=== PATIENT | female | born 1930 | race Caucasian/White ===

== ENCOUNTER 2018-01-20 10:57 | Inpatient (IN) | payer MEDICARE, OTHER ==
[2018-01-16 15:39] LABS: BASOPHILS % (AUTO) 0.5 % (0-1); EOSINOPHILS # (AUTO) 0.1 X10'3 (0-0.9); EOSINOPHILS % (AUTO) 3.1 % (0-6); LYMPHOCYTES # (AUTO) 0.4 X10'3 (1.1-4.8); LYMPHOCYTES % (AUTO) 11.5 % (21-51); MEAN CORPUSCULAR HEMOGLOBIN 30.6 PG (27.0-31.0); MEAN CORPUSCULAR HGB CONC 33.9 % (33.0-36.5); MEAN CORPUSCULAR VOLUME 90.3 FL (78-98); MEAN PLATELET VOLUME 10.5 FL (7.4-10.4); MONOCYTES # (AUTO) 0.3 X10'3 (0-0.9); MONOCYTES % (AUTO) 7.8 % (2-12); NEUTROPHILS # (AUTO) 2.7 X10'3 (1.8-7.7); NEUTROPHILS % (AUTO) 77.1 % (42-75); PRE OP HEMATOCRIT 31.9 % (35.0-45.0); PRE OP PLATELET COUNT 108 X10'3 (140-440); RED BLOOD COUNT 3.53 X10'6 (4.20-5.60); RED CELL DISTRIBUTION WIDTH 15.5 % (11.5-14.5)
[2018-01-16 15:46] LABS: PRE OP HEMOGLOBIN 10.8 g/dL (12.0-16.0)
[2018-01-16 15:47] LABS: PRE OP INR 1.1 INR; PRE OP PROTIME 11.4 SECONDS (9.0-12.0)
[2018-01-16 15:51] LABS: CLARITY,URINE CLEAR (Clear); COLOR,URINE YELLOW (Yellow); GLUCOSE, URINE NEGATIVE (Neg); KETONES,URINE NEGATIVE (Neg); LEUKOCYTE ESTERASE ,URINE SMALL (Neg); NITRITES, URINE NEGATIVE (Neg); OCCULT BLOOD,URINE TRACE-INTACT (Neg); PH,URINE 5.5 (4.8-8.0); PROTEIN,URINE NEGATIVE (Neg); UROBILINOGEN,URINE 0.2 E.U/dL (0.2-1.0)
[2018-01-16 15:52] LABS: ALBUMIN 3.5 G/DL (3.4-5.0); ALBUMIN/GLOBULIN RATIO 0.9 (1.1-1.5); ALKALINE PHOSPHATASE 132 IU/L (46-116); BLOOD UREA NITROGEN 60 MG/DL (7-18); BUN/CREATININE RATIO 23.1 (6.6-38.0); CHLORIDE 101 MMOL/L (99-107); PRE OP ALT 33 U/L (30-65); PRE OP ANION GAP 10 (8-16); PRE OP AST 36 U/L (10-37); PRE OP BILIRUB, TOTAL 0.5 MG/DL (0.0-1.0); PRE OP GLUCOSE 127 MG/DL (70-104); PRE OP POTASSIUM 3.7 MMOL/L (3.4-5.1); PRE OP SODIUM 142 MMOL/L (135-145); TOTAL CARBON DIOXIDE 30.9 MMOL/L (24-32); TOTAL PROTEIN 7.4 G/DL (6.4-8.2); eGFR 17 ML/MIN
[2018-01-16 15:56] LABS: UA COLLECTION TYPE CLN CATCH MIDSTREAM
[2018-01-16 15:57] LABS: BACTERIA,URINE FEW /HPF (Neg); MUCUS STRANDS NONE SEEN /LPF (Neg); RBC,URINE 0-2 /HPF (0-2); SQUAMOUS EPITHELIAL CELL,UR FEW /LPF (FEW); WBC,URINE 0-4 /HPF (0-4)
[2018-01-16 15:57] LABS: HEMOGLOBIN A1C 6.2 % (4.5-6.2)
[2018-01-20] VITALS (22 sets, daily range): BP systolic 119–148; BP diastolic 59–84
[~2018-01-20] VITALS: Ht 152.4 cm; Wt 74.8 kg
[~2018-01-20 10:57] MED LIST: ASPI81TA52 PO; CARV6.2553 PO; CHLO25TA10 PO; CYAN-19 PO; DILT360T13 PO; DOCUMENT DATE & TIME OF BETA-BLOCKER PO ONE; FENO160T8 PO; FERR324T PO; FURO20TA4 PO; LIRA0.6P SQ; LOSA100T15 PO; MESSAGE TO PHARMACY PO ONE; MULT-38 PO; POTA8TAB8 PO; SITA1TAB2 PO; acetaminophen 325mg tablet PO ONE; cefazolin/dext.iso 2gm/100 ML IV ONE; celeCOXIB 100mg capsule PO ONE; famotidine 20mg tablet PO ONE; gabapentin 300mg capsule PO ONE; metoclopramide 5 mg/ml inj IV ONE; oxyCODONE SR 10mg (sust. release) tab PO ONE; ringers solution, lacted 1,000 ML IV SCH; tranexamic acid inj. 1,000 MG in normal saline 100ml IV soln 90 ML IV ONE; vancomycin inj 1,500 MG in normal saline 300ml IV soln IV ONE
[2018-01-20] MEDS ORDERED: cloNIDine hcl/PF 100mcg/ml inj ONE (12:25)
[2018-01-20] MEDS ORDERED: vancomycin 1,000mg inj ONE (12:25)
[2018-01-20] MEDS ORDERED: ROPIVAcaine inj 250 MG, CloNIDine/PF inj 80 MCG, epiNEPHrine inj 0.5 MG in normal salin... IU ONE (13:08)
[2018-01-20] MEDS ORDERED: diphenhydrAMINE 50 mg/ml inj ONE (13:27)
[2018-01-20] MEDS ORDERED: glycopyrrolate 0.2mg/ml inj ONE (13:27)
[2018-01-20] MEDS ORDERED: BUPIVAcaine/dex-water/PF 7.5 mg/ml 2ml ampul ONE (13:31)
[2018-01-20] MEDS ORDERED: morphine /PF 1mg/ml 10ml inj. ONE (13:32)
[2018-01-20] MEDS ORDERED: midazolam 2 mg/2 ml injection ONE (13:33)
[2018-01-20] MEDS ORDERED: fentaNYL/PF 50MCG/1 ML 2ML syringe ONE (13:42)
[2018-01-20] MEDS ORDERED: propofol inj 20 ML IV ONE (14:46)
[2018-01-20] MEDS ORDERED: ePHEDrine 50MG/ML INJ. ONE (14:46)
[2018-01-20] MEDS ORDERED: phenylephrine 10mg/ml inj. ONE (14:46)
[2018-01-20] MEDS ORDERED: ringers solution, lacted 1,000 ML IV SCH (14:50)
[2018-01-20] MEDS ORDERED: morphine 4 MG/ML inj SYRINge IV PRN (14:50)
[2018-01-20] MEDS ORDERED: diphenhydrAMINE 50 mg/ml inj IV PRN (14:50)
[2018-01-20] MEDS ORDERED: ondansetron/PF 4mg/2ml inj IV PRN ×3 (14:50→17:22)
[2018-01-20] MEDS ORDERED: HYDROcodone/acetaminophen 10/325mg tab PO PRN ×2 (17:21)
[2018-01-20] MEDS ORDERED: diphenhydrAMINE 25mg capsule PO PRN ×2 (17:22→21:00)
[2018-01-20] MEDS ORDERED: magnesium hydroxide 30ml (MOM) UD suspension PO PRN (17:22)
[2018-01-20] MEDS ORDERED: HYDROmorphone 1 mg/ml syringe IV PRN ×2 (17:24)
[2018-01-20] MEDS ORDERED: acetaminophen 325mg tablet PO PRN (17:25)
[2018-01-20] MEDS ORDERED: dextrose ORAL solution 15 GM/59 ML bottle PO PRN ×2 (17:26)
[2018-01-20] MEDS ORDERED: glucagon, human recombinant 1mg kit SUBCUT PRN (17:27)
[2018-01-20] MEDS ORDERED: dextrose 50%-water 50ml dispensing syringe IV PRN ×2 (17:27)
[2018-01-20] MEDS: ceFAZolin 1GM/D5W- ADD-VANTAGE 50 ML IV SCH (18:02)
[2018-01-20] MEDS ORDERED: vancomycin/NS 1 GM ADD-VANTAGE 250 ML IV SCH (20:00)
[2018-01-20] MEDS: gabapentin 300mg capsule PO SCH (20:39)
[2018-01-20] MEDS: sennosides 8.6mg tablet PO SCH (20:39)
[2018-01-20] MEDS: potassium cl 20mEq in 1/2 NS 1,000 ML IV SCH (20:39)
[2018-01-20] MEDS: ascorbic acid 500mg tablet PO SCH (20:40)
[2018-01-20] MEDS: carvedilol 6.25mg tablet PO SCH (20:40)
[2018-01-20] MEDS: insulin glargine (Lantus) pen - multi-dose SQ SCH (20:47)
[2018-01-21] MEDS: ceFAZolin 1GM/D5W- ADD-VANTAGE 50 ML IV SCH (00:20)
[2018-01-21 02:00] VITALS: BP 123/65
[2018-01-21] MEDS: potassium cl 20mEq in 1/2 NS 1,000 ML IV SCH ×3 (05:31→19:15)
[2018-01-21 05:53] LABS: BASOPHILS % (AUTO) 0.4 % (0-1); EOSINOPHILS # (AUTO) 0.1 X10'3 (0-0.9); EOSINOPHILS % (AUTO) 3.3 % (0-6); HEMATOCRIT 23.7 % (35.0-45.0); HEMOGLOBIN 8.2 g/dl (12.0-16.0); LYMPHOCYTES # (AUTO) 0.3 X10'3 (1.1-4.8); LYMPHOCYTES % (AUTO) 12.4 % (21-51); MEAN CORPUSCULAR HEMOGLOBIN 31.5 PG (27.0-31.0); MEAN CORPUSCULAR HGB CONC 34.5 % (33.0-36.5); MEAN CORPUSCULAR VOLUME 91.1 FL (78-98); MEAN PLATELET VOLUME 9.6 FL (7.4-10.4); MONOCYTES # (AUTO) 0.2 X10'3 (0-0.9); MONOCYTES % (AUTO) 9.3 % (2-12); NEUTROPHILS % (AUTO) 74.6 % (42-75); PLATELET COUNT 77 X10'3 (140-440); RED CELL DISTRIBUTION WIDTH 15.5 % (11.5-14.5); WHITE BLOOD COUNT 2.6 X10'3 (4.5-11.0)
[2018-01-21 06:00] VITALS: BP 128/52
[2018-01-21 06:14] LABS: ANION GAP 7 (8-16); CHLORIDE 107 MMOL/L (99-107); POTASSIUM 3.5 MMOL/L (3.5-5.1); SODIUM 143 MMOL/L (135-145); TOTAL CARBON DIOXIDE 29.5 MMOL/L (24-32)
[2018-01-21 06:33] LABS: PLATELET ESTIMATE DECREASED; TOTAL CELLS COUNTED 100
[2018-01-21] MEDS: diltiazem CD 180mg cap (once-daily) PO SCH (08:00)
[2018-01-21] MEDS ORDERED: bisacodyl 10mg suppository rectal RC PRN (08:00)
[2018-01-21] MEDS: carvedilol 6.25mg tablet PO SCH ×2 (08:00→20:05)
[2018-01-21] MEDS: multivitamins, therapeutics tablet PO SCH (08:51)
[2018-01-21] MEDS: aspirin 325mg tablet PO SCH (08:51)
[2018-01-21] MEDS: gabapentin 300mg capsule PO SCH ×3 (08:51→20:05)
[2018-01-21] MEDS: chlorthalidone 25mg tablet PO SCH (08:51)
[2018-01-21] MEDS: furosemide 20MG tablet PO SCH (08:51)
[2018-01-21] MEDS: losartan 50mg tablet PO SCH (08:53)
[2018-01-21] MEDS: potassium chloride 8mEq ER tablet PO SCH (08:55)
[2018-01-21] MEDS: ascorbic acid 500mg tablet PO SCH ×2 (08:57→20:05)
[2018-01-21 10:00] VITALS: BP 125/50
[2018-01-21 14:00] VITALS: BP 140/52
[2018-01-21 18:00] VITALS: BP 146/60
[2018-01-21] MEDS: sennosides 8.6mg tablet PO SCH (20:06)
[2018-01-21] MEDS: insulin glargine (Lantus) pen - multi-dose SQ SCH (21:07)
[2018-01-21 22:00] VITALS: BP 121/52
[2018-01-22] VITALS (7 sets, daily range): BP systolic 112–132; BP diastolic 48–63
[2018-01-22] MEDS: potassium cl 20mEq in 1/2 NS 1,000 ML IV SCH (01:19)
[2018-01-22 07:05] LABS: BASOPHILS % (AUTO) 0.3 % (0-1); EOSINOPHILS # (AUTO) 0.1 X10'3 (0-0.9); EOSINOPHILS % (AUTO) 2.7 % (0-6); HEMATOCRIT 24.6 % (35.0-45.0); HEMOGLOBIN 8.5 g/dl (12.0-16.0); LYMPHOCYTES # (AUTO) 0.4 X10'3 (1.1-4.8); LYMPHOCYTES % (AUTO) 12.4 % (21-51); MEAN CORPUSCULAR HEMOGLOBIN 31.3 PG (27.0-31.0); MEAN CORPUSCULAR HGB CONC 34.3 % (33.0-36.5); MEAN CORPUSCULAR VOLUME 91.2 FL (78-98); MEAN PLATELET VOLUME 10.7 FL (7.4-10.4); MONOCYTES # (AUTO) 0.2 X10'3 (0-0.9); MONOCYTES % (AUTO) 8.1 % (2-12); NEUTROPHILS # (AUTO) 2.3 X10'3 (1.8-7.7); NEUTROPHILS % (AUTO) 76.5 % (42-75); PLATELET COUNT 82 X10'3 (140-440); RED CELL DISTRIBUTION WIDTH 15.8 % (11.5-14.5)
[2018-01-22] MEDS: NUT.TX.GLUC.INTOLER,LAC-FR,SOY (GLUCERNA) 237 ML PO SCH ×4 (08:00→18:40)
[2018-01-22] MEDS: diltiazem CD 180mg cap (once-daily) PO SCH (09:02)
[2018-01-22] MEDS: chlorthalidone 25mg tablet PO SCH (09:02)
[2018-01-22] MEDS: furosemide 20MG tablet PO SCH (09:02)
[2018-01-22] MEDS: potassium chloride 8mEq ER tablet PO SCH (09:02)
[2018-01-22] MEDS: ascorbic acid 500mg tablet PO SCH ×2 (09:03→19:44)
[2018-01-22] MEDS: multivitamins, therapeutics tablet PO SCH (09:03)
[2018-01-22] MEDS: aspirin 325mg tablet PO SCH (09:03)
[2018-01-22] MEDS: gabapentin 300mg capsule PO SCH ×3 (09:03→19:44)
[2018-01-22] MEDS: carvedilol 6.25mg tablet PO SCH ×2 (09:03→19:44)
[2018-01-22] MEDS: losartan 50mg tablet PO SCH (09:03)
[2018-01-22] MEDS: insulin Lispro (HumaLOG) vial - multi-dose SQ SCH ×3 (09:12→18:37)
[2018-01-22 11:39] LABS: LARGE PLATELETS FEW; PLATELET ESTIMATE DECREASED
[2018-01-22] MEDS: sennosides 8.6mg tablet PO SCH (19:44)
[2018-01-22] MEDS: insulin glargine (Lantus) pen - multi-dose SQ SCH (21:01)
[2018-01-23] VITALS (14 sets, daily range): BP systolic 94–144; BP diastolic 39–55
[2018-01-23 05:52] LABS: HEMOGLOBIN 7.2 g/dl (12.0-16.0); MEAN CORPUSCULAR HEMOGLOBIN 31.8 PG (27.0-31.0); MEAN CORPUSCULAR VOLUME 90.6 FL (78-98); MEAN PLATELET VOLUME 9.9 FL (7.4-10.4); PLATELET COUNT 76 X10'3 (140-440); RED BLOOD COUNT 2.26 X10'6 (4.20-5.60); RED CELL DISTRIBUTION WIDTH 15.6 % (11.5-14.5); WHITE BLOOD COUNT 2.9 X10'3 (4.5-11.0)
[2018-01-23 06:26] LABS: HEMATOCRIT 20.5 % (35.0-45.0)
[2018-01-23 07:48] LABS: ANISOCYTOSIS 1+; PLATELET ESTIMATE DECREASED; TOTAL CELLS COUNTED 100
[2018-01-23] MEDS: diltiazem CD 180mg cap (once-daily) PO SCH (08:36)
[2018-01-23] MEDS: carvedilol 6.25mg tablet PO SCH ×2 (08:36→19:30)
[2018-01-23] MEDS: chlorthalidone 25mg tablet PO SCH (08:36)
[2018-01-23] MEDS: multivitamins, therapeutics tablet PO SCH (08:37)
[2018-01-23] MEDS: losartan 50mg tablet PO SCH (08:37)
[2018-01-23] MEDS: ascorbic acid 500mg tablet PO SCH ×2 (08:37→19:30)
[2018-01-23] MEDS: gabapentin 300mg capsule PO SCH ×3 (08:37→19:30)
[2018-01-23] MEDS: furosemide 20MG tablet PO SCH (08:37)
[2018-01-23] MEDS: aspirin 325mg tablet PO SCH (08:37)
[2018-01-23] MEDS: potassium chloride 8mEq ER tablet PO SCH (08:37)
[2018-01-23] MEDS: NUT.TX.GLUC.INTOLER,LAC-FR,SOY (GLUCERNA) 237 ML PO SCH ×3 (08:48→18:17)
[2018-01-23] MEDS: insulin Lispro (HumaLOG) vial - multi-dose SQ SCH ×2 (10:08→18:35)
[2018-01-23] MEDS: sennosides 8.6mg tablet PO SCH (19:30)
[2018-01-23] MEDS: insulin glargine (Lantus) pen - multi-dose SQ SCH (20:50)
[2018-01-24 05:00] VITALS: BP 125/58
[2018-01-24 07:30] LABS: HEMATOCRIT 28.7 % (35.0-45.0); HEMOGLOBIN 10.1 g/dl (12.0-16.0); MEAN CORPUSCULAR HEMOGLOBIN 31.6 PG (27.0-31.0); MEAN CORPUSCULAR HGB CONC 35.1 % (33.0-36.5); PLATELET COUNT 89 X10'3 (140-440); RED BLOOD COUNT 3.19 X10'6 (4.20-5.60); RED CELL DISTRIBUTION WIDTH 15.4 % (11.5-14.5); WHITE BLOOD COUNT 2.9 X10'3 (4.5-11.0)
[2018-01-24 07:59] LABS: ANISOCYTOSIS 1+; PLATELET ESTIMATE DECREASED; POLYCHROMASIA 1+; TOTAL CELLS COUNTED 100
[2018-01-24] MEDS: carvedilol 6.25mg tablet PO SCH (08:00)
[2018-01-24] MEDS: diltiazem CD 180mg cap (once-daily) PO SCH (08:00)
[2018-01-24] MEDS: chlorthalidone 25mg tablet PO SCH (08:15)
[2018-01-24] MEDS: furosemide 20MG tablet PO SCH (08:16)
[2018-01-24] MEDS: potassium chloride 8mEq ER tablet PO SCH (08:16)
[2018-01-24] MEDS: gabapentin 300mg capsule PO SCH (08:16)
[2018-01-24] MEDS: losartan 50mg tablet PO SCH (08:16)
[2018-01-24] MEDS: ascorbic acid 500mg tablet PO SCH (08:18)
[2018-01-24] MEDS: aspirin 325mg tablet PO SCH (08:18)
[2018-01-24] MEDS: multivitamins, therapeutics tablet PO SCH (08:18)
[2018-01-24] MEDS: NUT.TX.GLUC.INTOLER,LAC-FR,SOY (GLUCERNA) 237 ML PO SCH (08:22)
[2018-01-24 10:00] VITALS: BP 122/51
== END 2018-01-24 11:30 | disposition home or self-care (01) | DRG 470 ==
LOC: PAS IN 10:57 → EDSTATUS 14:00 → ORTHO 4S 16:59
PROVIDERS: ADMIT Orthopaedic Surgery; ATTEND Orthopaedic Surgery
PROC: 0SR9069 Replacement of Right Hip Joint with Oxidized Zirconium on Polyethylene Synthetic Substitute, Cemented, Open Approach (ICD-10-PCS; principal; 2018-01-20 13:27)
PROC: 30233N1 Transfusion of Nonautologous Red Blood Cells into Peripheral Vein, Percutaneous Approach (ICD-10-PCS; 2018-01-23)
DX: M16.11 Unilateral primary osteoarthritis, right hip (principal); D62 Acute posthemorrhagic anemia; E11.22 Type 2 diabetes mellitus with diabetic chronic kidney disease; Z96.642 Presence of left artificial hip joint; I12.9 Hypertensive chronic kidney disease with stage 1 through stage 4 chronic kidney disease, or unspecified chronic kidney disease; I89.0 Lymphedema, not elsewhere classified; N18.9 Chronic kidney disease, unspecified; Z90.49 Acquired absence of other specified parts of digestive tract; Z90.710 Acquired absence of both cervix and uterus; Z79.899 Other long term (current) drug therapy; Z79.82 Long term (current) use of aspirin; Z87.891 Personal history of nicotine dependence
CPT/HCPCS: 36415; 71046; 72170; 80051; 80053; 81001; 82948; 83036; 85025; 85610; 85730; 86885; 86900; 86901; 86922; 87070; 87088; 97110; 97116; 97161; 97530; A4615; A7000; C1713; C1758; C1776; J0171; J0690; J0735; J1200; J1815; J2250; J2274; J2370; J2704; J2765; J2795; J3010; J3370; J3490; J7030; J7120; P9016

== ENCOUNTER 2018-02-05 15:27 | Inpatient (IN) | payer MEDICARE, OTHER ==
[~2018-02-05] VITALS: Ht 152.4 cm; Wt 74.0 kg
[~2018-02-05 15:27] MED LIST changes: -DOCUMENT DATE & TIME OF BETA-BLOCKER PO ONE; -MESSAGE TO PHARMACY PO ONE; -acetaminophen 325mg tablet PO ONE; -cefazolin/dext.iso 2gm/100 ML IV ONE; -celeCOXIB 100mg capsule PO ONE; -famotidine 20mg tablet PO ONE; -gabapentin 300mg capsule PO ONE; -metoclopramide 5 mg/ml inj IV ONE; -oxyCODONE SR 10mg (sust. release) tab PO ONE; -ringers solution, lacted 1,000 ML IV SCH; -tranexamic acid inj. 1,000 MG in normal saline 100ml IV soln 90 ML IV ONE; -vancomycin inj 1,500 MG in normal saline 300ml IV soln IV ONE
[2018-02-05 16:00] VITALS: BP 120/43
[2018-02-05] MEDS ORDERED: diphenhydrAMINE 25mg capsule PO PRN ×2 (16:40)
[2018-02-05] MEDS ORDERED: acetaminophen 325mg tablet PO PRN (16:40)
[2018-02-05] MEDS ORDERED: magnesium hydroxide 30ml (MOM) UD suspension PO PRN (16:40)
[2018-02-05] MEDS ORDERED: ondansetron/PF 4mg/2ml inj IV PRN (16:40)
[2018-02-05] MEDS ORDERED: HYDROmorphone 1 mg/ml syringe IV PRN ×2 (16:40)
[2018-02-05] MEDS ORDERED: bisacodyl 10mg suppository rectal RC PRN (16:40)
[2018-02-05] MEDS ORDERED: MESSAGE TO PHARMACY PO ONE (17:15)
[2018-02-05] MEDS ORDERED: insulin Lispro (HumaLOG) vial - multi-dose SQ SCH (17:15)
[2018-02-05] MEDS ORDERED: glucagon, human recombinant 1mg kit SUBCUT PRN (17:15)
[2018-02-05] MEDS ORDERED: dextrose 50%-water 50ml dispensing syringe IV PRN ×2 (17:15)
[2018-02-05] MEDS ORDERED: dextrose ORAL solution 15 GM/59 ML bottle PO PRN ×2 (17:15)
[2018-02-05 17:39] LABS: BASOPHILS % (AUTO) 0.4 % (0-1); EOSINOPHILS # (AUTO) 0.1 X10'3 (0-0.9); EOSINOPHILS % (AUTO) 3.6 % (0-6); LYMPHOCYTES # (AUTO) 0.4 X10'3 (1.1-4.8); LYMPHOCYTES % (AUTO) 15.1 % (21-51); MEAN CORPUSCULAR HEMOGLOBIN 30.4 PG (27.0-31.0); MEAN PLATELET VOLUME 8.9 FL (7.4-10.4); MONOCYTES # (AUTO) 0.3 X10'3 (0-0.9); MONOCYTES % (AUTO) 9.8 % (2-12); NEUTROPHILS % (AUTO) 71.1 % (42-75); PRE OP HEMATOCRIT 24.6 % (35.0-45.0); PRE OP PLATELET COUNT 162 X10'3 (140-440); RED BLOOD COUNT 2.68 X10'6 (4.20-5.60); RED CELL DISTRIBUTION WIDTH 16.3 % (11.5-14.5)
[2018-02-05 17:42] LABS: PRE OP HEMOGLOBIN 8.1 g/dL (12.0-16.0)
[2018-02-05 17:52] LABS: ALANINE AMINOTRANSFERASE 20 U/L (12-78); ALBUMIN 2.5 G/DL (3.4-5.0); ALBUMIN/GLOBULIN RATIO 0.7 (1.1-1.5); ALKALINE PHOSPHATASE 95 IU/L (46-116); ANION GAP 6 (8-16); ASPARTATE AMINO TRANSFERASE 29 U/L (10-37); BILIRUBIN,TOTAL 0.5 MG/DL (0.1-1.0); BLOOD UREA NITROGEN 44 MG/DL (7-18); BUN/CREATININE RATIO 22.9 (6.6-38.0); C-REACTIVE PROTEIN 2.19 MG/DL (0.0-0.5); CHLORIDE 104 MMOL/L (99-107); CREATININE 1.92 MG/DL (0.40-0.90); GLUCOSE 170 MG/DL (70-104); POTASSIUM 3.3 MMOL/L (3.5-5.1); SODIUM 145 MMOL/L (135-145); TOTAL CARBON DIOXIDE 34.6 MMOL/L (24-32); TOTAL PROTEIN 6.3 G/DL (6.4-8.2); eGFR 25 ML/MIN
[2018-02-05 18:00] VITALS: BP 120/43
[2018-02-05 18:44] LABS: ANISOCYTOSIS 1+; PLATELET ESTIMATE NORMAL; TOTAL CELLS COUNTED 100
[2018-02-05 18:45] LABS: POLYCHROMASIA FEW
[2018-02-05] MEDS: gabapentin 300mg capsule PO SCH (20:34)
[2018-02-05] MEDS: sennosides 8.6mg tablet PO SCH (20:34)
[2018-02-05] MEDS: carvedilol 6.25mg tablet PO SCH (20:34)
[2018-02-05] MEDS: ascorbic acid 500mg tablet PO SCH (20:34)
[2018-02-05] MEDS: potassium cl 20mEq in 1/2 NS 1,000 ML IV SCH (20:35)
[2018-02-05] MEDS: insulin glargine (Lantus) pen - multi-dose SQ SCH (21:00)
[2018-02-05 22:00] VITALS: BP 108/52
[2018-02-05] MEDS: HYDROcodone/acetaminophen 10/325mg tab PO PRN (22:57)
[2018-02-06] VITALS (19 sets, daily range): BP systolic 113–139; BP diastolic 39–78
[2018-02-06] MEDS: potassium cl 20mEq in 1/2 NS 1,000 ML IV SCH ×2 (00:38→05:20)
[2018-02-06 05:24] LABS: BASOPHILS % (AUTO) 0.6 % (0-1); EOSINOPHILS # (AUTO) 0.1 X10'3 (0-0.9); EOSINOPHILS % (AUTO) 3.9 % (0-6); HEMATOCRIT 23.2 % (35.0-45.0); HEMOGLOBIN 7.9 g/dl (12.0-16.0); LYMPHOCYTES # (AUTO) 0.5 X10'3 (1.1-4.8); LYMPHOCYTES % (AUTO) 18.8 % (21-51); MEAN CORPUSCULAR HEMOGLOBIN 31.1 PG (27.0-31.0); MEAN CORPUSCULAR HGB CONC 33.8 % (33.0-36.5); MEAN PLATELET VOLUME 9.1 FL (7.4-10.4); MONOCYTES # (AUTO) 0.3 X10'3 (0-0.9); MONOCYTES % (AUTO) 9.5 % (2-12); NEUTROPHILS # (AUTO) 1.9 X10'3 (1.8-7.7); NEUTROPHILS % (AUTO) 67.2 % (42-75); PLATELET COUNT 163 X10'3 (140-440); RED BLOOD COUNT 2.53 X10'6 (4.20-5.60); RED CELL DISTRIBUTION WIDTH 15.8 % (11.5-14.5); WHITE BLOOD COUNT 2.8 X10'3 (4.5-11.0)
[2018-02-06 05:57] LABS: ALBUMIN 2.4 G/DL (3.4-5.0); ANION GAP 9 (8-16); BLOOD UREA NITROGEN 41 MG/DL (7-18); BUN/CREATININE RATIO 23.4 (6.6-38.0); CALCIUM 8.7 MG/DL (8.5-10.1); CHLORIDE 104 MMOL/L (99-107); CREATININE 1.75 MG/DL (0.40-0.90); GLUCOSE 130 MG/DL (70-104); POTASSIUM 3.6 MMOL/L (3.5-5.1); SODIUM 142 MMOL/L (135-145); TOTAL CARBON DIOXIDE 28.7 MMOL/L (24-32); eGFR 27 ML/MIN
[2018-02-06 06:39] LABS: PLATELET ESTIMATE NORMAL; TOTAL CELLS COUNTED 100
[2018-02-06 06:40] LABS: ANISOCYTOSIS 1+; POLYCHROMASIA 1+
[2018-02-06] MEDS ORDERED: potassium Cl 20 mEq SR tablet PO ONE (06:55)
[2018-02-06] MEDS: losartan 50mg tablet PO SCH (08:00)
[2018-02-06] MEDS: chlorthalidone 25mg tablet PO SCH (08:00)
[2018-02-06] MEDS: ascorbic acid 500mg tablet PO SCH ×2 (08:00→20:55)
[2018-02-06] MEDS: multivitamins, therapeutics tablet PO SCH (08:00)
[2018-02-06] MEDS: diltiazem CD 120mg capsule (once-daily) PO SCH (08:18)
[2018-02-06] MEDS: potassium chloride 8mEq ER tablet PO SCH (08:18)
[2018-02-06] MEDS: furosemide 20MG tablet PO SCH (08:18)
[2018-02-06] MEDS: carvedilol 6.25mg tablet PO SCH ×2 (08:18→20:55)
[2018-02-06] MEDS: gabapentin 300mg capsule PO SCH ×3 (08:18→20:55)
[2018-02-06] MEDS: HYDROcodone/acetaminophen 10/325mg tab PO PRN ×2 (08:21→20:39)
[2018-02-06] MEDS ORDERED: vancomycin 1,000mg inj ONE (12:00)
[2018-02-06] MEDS ORDERED: vancomycin/NS 1 GM ADD-VANTAGE 250 ML IV ONE (13:20)
[2018-02-06] MEDS ORDERED: tranexamic acid inj. 1,000 MG in normal saline 100ml IV soln 90 ML IV ONE (13:20)
[2018-02-06] MEDS ORDERED: ROPIVAcaine inj 250 MG, epiNEPHrine inj 0.5 MG, CloNIDine/PF inj 80 MCG in normal salin... SQ ONE (13:20)
[2018-02-06] MEDS ORDERED: cefazolin/dext.iso 2gm/100ml 100 ML IV ONE (13:20)
[2018-02-06] MEDS ORDERED: ketorolac trometh. 30mg/ml inj. ONE (13:22)
[2018-02-06] MEDS ORDERED: albumin (Human) 5% 250ml 250 ML IV ONE ×2 (15:59)
[2018-02-06] MEDS ORDERED: fentaNYL/PF 50MCG/1 ML 2ML syringe ONE ×2 (15:59)
[2018-02-06] MEDS ORDERED: midazolam 2 mg/2 ml injection ONE (15:59)
[2018-02-06] MEDS ORDERED: rocuronium 10mg/ml inj IV ONE (16:00)
[2018-02-06] MEDS ORDERED: etomidate 2mg/ml inj. ONE (16:00)
[2018-02-06] MEDS ORDERED: sevoflurane 250ml liquid IH ONE (16:00)
[2018-02-06] MEDS ORDERED: sugammadex 200mg/2ml injection IV ONE (16:43)
[2018-02-06] MEDS ORDERED: ringers solution, lacted 1,000 ML IV SCH (16:51)
[2018-02-06] MEDS ORDERED: ondansetron/PF 4mg/2ml inj IV PRN (16:55)
[2018-02-06] MEDS ORDERED: morphine 4 MG/ML inj SYRINge IV PRN ×2 (16:55)
[2018-02-06] MEDS ORDERED: fentaNYL/PF 50MCG/1 ML 2ML syringe IV PRN (16:55)
[2018-02-06] MEDS ORDERED: enalaprilat dihydrate 2.5mg/2ml vial IV PRN (16:55)
[2018-02-06] MEDS ORDERED: hydrALAZINE 20mg/ml inj. IV PRN (16:55)
[2018-02-06] MEDS ORDERED: tranexamic acid 100mg/ml inj. ONE (17:10)
[2018-02-06] MEDS ORDERED: neostigmine methylsulfate 1 MG/ML 10ml vial ONE (17:14)
[2018-02-06] MEDS ORDERED: glycopyrrolate 0.2mg/ml inj ONE (17:14)
[2018-02-06 18:30] LABS: ISTAT CREATININE 1.4 mg/dL (0.6-1.1); ISTAT HGB 9.2 g/dl (12.0-16.0); ISTAT IONIZED CALCIUM 1.24 mmol/L (1.03-1.32); ISTAT K 4.5 mmol/L (3.5-5.1); POC BUN/CREATININE RATIO 23.6 (6.6-38.0)
[2018-02-06] MEDS: fentaNYL/PF 50MCG/1 ML 2ML syringe IV PRN ×2 (18:39→18:40)
[2018-02-06 18:50] LABS: ISTAT CREATININE 1.5 mg/dL (0.6-1.1); ISTAT HGB 9.2 g/dl (12.0-16.0); ISTAT IONIZED CALCIUM 1.22 mmol/L (1.03-1.32); ISTAT K 4.4 mmol/L (3.5-5.1); POC BUN/CREATININE RATIO 21.3 (6.6-38.0)
[2018-02-06] MEDS: sennosides 8.6mg tablet PO SCH (20:54)
[2018-02-06] MEDS: insulin glargine (Lantus) pen - multi-dose SQ SCH (23:43)
[2018-02-07] MEDS: cefazolin/dext.iso 2gm/100ml 100 ML IV SCH ×4 (00:37→23:53)
[2018-02-07] MEDS: potassium cl 20mEq in 1/2 NS 1,000 ML IV SCH ×3 (00:37→12:14)
[2018-02-07 02:00] VITALS: BP 124/58
[2018-02-07] MEDS: HYDROcodone/acetaminophen 10/325mg tab PO PRN ×4 (03:16→19:28)
[2018-02-07 05:22] LABS: BASOPHILS % (AUTO) 0.2 % (0-1); EOSINOPHILS % (AUTO) 0 % (0-6); HEMATOCRIT 24.2 % (35.0-45.0); HEMOGLOBIN 8.1 g/dl (12.0-16.0); LYMPHOCYTES # (AUTO) 0.3 X10'3 (1.1-4.8); LYMPHOCYTES % (AUTO) 8.4 % (21-51); MEAN CORPUSCULAR HEMOGLOBIN 30.2 PG (27.0-31.0); MEAN CORPUSCULAR HGB CONC 33.6 % (33.0-36.5); MEAN PLATELET VOLUME 9.1 FL (7.4-10.4); MONOCYTES # (AUTO) 0.1 X10'3 (0-0.9); MONOCYTES % (AUTO) 3.7 % (2-12); NEUTROPHILS # (AUTO) 2.8 X10'3 (1.8-7.7); NEUTROPHILS % (AUTO) 87.7 % (42-75); PLATELET COUNT 155 X10'3 (140-440); RED BLOOD COUNT 2.69 X10'6 (4.20-5.60); RED CELL DISTRIBUTION WIDTH 16.7 % (11.5-14.5); WHITE BLOOD COUNT 3.1 X10'3 (4.5-11.0)
[2018-02-07 06:00] VITALS: BP 138/58
[2018-02-07] MEDS ORDERED: vancomycin/NS 1 GM ADD-VANTAGE 250 ML IV ONE (06:00)
[2018-02-07] MEDS: ascorbic acid 500mg tablet PO SCH ×2 (08:36→19:29)
[2018-02-07] MEDS: diltiazem CD 120mg capsule (once-daily) PO SCH (08:36)
[2018-02-07] MEDS: carvedilol 6.25mg tablet PO SCH ×2 (08:36→19:29)
[2018-02-07] MEDS: chlorthalidone 25mg tablet PO SCH (08:36)
[2018-02-07] MEDS: multivitamins, therapeutics tablet PO SCH (08:36)
[2018-02-07] MEDS: gabapentin 300mg capsule PO SCH ×2 (08:37→19:29)
[2018-02-07] MEDS: losartan 50mg tablet PO SCH (08:37)
[2018-02-07] MEDS: furosemide 20MG tablet PO SCH (08:37)
[2018-02-07] MEDS: potassium chloride 8mEq ER tablet PO SCH (08:37)
[2018-02-07 10:00] VITALS: BP 127/55
[2018-02-07 18:00] VITALS: BP 110/56
[2018-02-07] MEDS: metFORMIN 500mg tablet PO SCH (19:29)
[2018-02-07] MEDS ORDERED: METFORMIN HCL PO SCH (20:00)
[2018-02-07] MEDS ORDERED: SITAGLIPTIN PHOS PO SCH (20:00)
[2018-02-07] MEDS: sennosides 8.6mg tablet PO SCH (21:00)
[2018-02-07 22:00] VITALS: BP 132/53
[2018-02-08] MEDS: HYDROcodone/acetaminophen 10/325mg tab PO PRN ×2 (05:20→15:53)
[2018-02-08 05:30] VITALS: BP 115/46
[2018-02-08 06:08] LABS: BASOPHILS % (AUTO) 0.2 % (0-1); EOSINOPHILS # (AUTO) 0.1 X10'3 (0-0.9); EOSINOPHILS % (AUTO) 1.9 % (0-6); HEMATOCRIT 27.2 % (35.0-45.0); HEMOGLOBIN 8.9 g/dl (12.0-16.0); LYMPHOCYTES # (AUTO) 0.6 X10'3 (1.1-4.8); LYMPHOCYTES % (AUTO) 9.7 % (21-51); MEAN CORPUSCULAR HEMOGLOBIN 30.4 PG (27.0-31.0); MEAN CORPUSCULAR HGB CONC 32.9 % (33.0-36.5); MEAN CORPUSCULAR VOLUME 92.3 FL (78-98); MEAN PLATELET VOLUME 9.2 FL (7.4-10.4); MONOCYTES # (AUTO) 0.5 X10'3 (0-0.9); MONOCYTES % (AUTO) 8.7 % (2-12); NEUTROPHILS # (AUTO) 4.6 X10'3 (1.8-7.7); NEUTROPHILS % (AUTO) 79.5 % (42-75); PLATELET COUNT 187 X10'3 (140-440); RED BLOOD COUNT 2.95 X10'6 (4.20-5.60); RED CELL DISTRIBUTION WIDTH 17.1 % (11.5-14.5); WHITE BLOOD COUNT 5.8 X10'3 (4.5-11.0)
[2018-02-08] MEDS: VICTOZA 1.2 MG SQ SCH (08:00)
[2018-02-08] MEDS ORDERED: LIRAGLUTIDE 1.2 MG SQ SCH (08:00)
[2018-02-08 09:19] VITALS: BP 133/52
[2018-02-08] MEDS: ascorbic acid 500mg tablet PO SCH ×2 (09:22→19:45)
[2018-02-08] MEDS: diltiazem CD 120mg capsule (once-daily) PO SCH (09:22)
[2018-02-08] MEDS: metFORMIN 500mg tablet PO SCH ×2 (09:22→19:44)
[2018-02-08] MEDS: carvedilol 6.25mg tablet PO SCH ×2 (09:22→19:45)
[2018-02-08] MEDS: cefazolin/dext.iso 2gm/100ml 100 ML IV SCH ×3 (09:22→19:36)
[2018-02-08] MEDS: potassium chloride 8mEq ER tablet PO SCH (09:23)
[2018-02-08] MEDS: linagliptin 5mg tablet PO SCH (09:23)
[2018-02-08] MEDS: multivitamins, therapeutics tablet PO SCH (09:23)
[2018-02-08] MEDS: losartan 50mg tablet PO SCH (09:23)
[2018-02-08] MEDS: furosemide 20MG tablet PO SCH (09:24)
[2018-02-08] MEDS: chlorthalidone 25mg tablet PO SCH (09:24)
[2018-02-08] MEDS: gabapentin 300mg capsule PO SCH ×2 (09:24→19:45)
[2018-02-08 18:00] VITALS: BP 125/53
[2018-02-08] MEDS: sennosides 8.6mg tablet PO SCH (19:45)
[2018-02-08] MEDS: lactobacillus rhamnosus 10,000 MMU CELLS/CAPSULE PO SCH (19:45)
[2018-02-08 22:00] VITALS: BP 126/42
[2018-02-09 05:00] VITALS: BP 119/54
[2018-02-09] MEDS: HYDROcodone/acetaminophen 10/325mg tab PO PRN ×2 (06:35→12:13)
[2018-02-09] MEDS: chlorthalidone 25mg tablet PO SCH (08:00)
[2018-02-09] MEDS: diltiazem CD 120mg capsule (once-daily) PO SCH (08:00)
[2018-02-09] MEDS: VICTOZA 1.2 MG SQ SCH (08:00)
[2018-02-09] MEDS: losartan 50mg tablet PO SCH (08:00)
[2018-02-09 08:37] VITALS: BP 112/45
[2018-02-09] MEDS: carvedilol 6.25mg tablet PO SCH (08:55)
[2018-02-09] MEDS: lactobacillus rhamnosus 10,000 MMU CELLS/CAPSULE PO SCH (08:55)
[2018-02-09] MEDS: gabapentin 300mg capsule PO SCH (08:56)
[2018-02-09] MEDS: potassium chloride 8mEq ER tablet PO SCH (08:59)
[2018-02-09] MEDS: furosemide 20MG tablet PO SCH (09:00)
[2018-02-09] MEDS: metFORMIN 500mg tablet PO SCH (09:01)
[2018-02-09] MEDS: linagliptin 5mg tablet PO SCH (09:02)
[2018-02-09] MEDS: multivitamins, therapeutics tablet PO SCH (09:03)
[2018-02-09] MEDS: ascorbic acid 500mg tablet PO SCH (09:04)
[2018-02-09 10:00] VITALS: BP 114/46
[2018-02-09 10:30] VITALS: BP 135/54
[2018-02-10] MEDS ORDERED: VICTOZA 1.2 MG SQ SCH (08:00)
== END 2018-02-09 14:15 | disposition home health service (06) | DRG 907 ==
LOC: ORTHO 4S 16:24
PROVIDERS: ADMIT Orthopaedic Surgery; ATTEND Orthopaedic Surgery
PROC: 0SPR0JZ Removal of Synthetic Substitute from Right Hip Joint, Femoral Surface, Open Approach (ICD-10-PCS; 2018-02-06)
PROC: 0QS604Z Reposition Right Upper Femur with Internal Fixation Device, Open Approach (ICD-10-PCS; 2018-02-06)
PROC: 30233N1 Transfusion of Nonautologous Red Blood Cells into Peripheral Vein, Percutaneous Approach (ICD-10-PCS; 2018-02-06)
PROC: 0SP909Z Removal of Liner from Right Hip Joint, Open Approach (ICD-10-PCS; 2018-02-06)
PROC: 0SUA09Z Supplement Right Hip Joint, Acetabular Surface with Liner, Open Approach (ICD-10-PCS; 2018-02-06)
PROC: 0SRR0JZ Replacement of Right Hip Joint, Femoral Surface with Synthetic Substitute, Open Approach (ICD-10-PCS; principal; 2018-02-06 16:00)
DX: M96.840 Postprocedural hematoma of a musculoskeletal structure following a musculoskeletal system procedure (principal); S72.111A Displaced fracture of greater trochanter of right femur, initial encounter for closed fracture; N18.4 Chronic kidney disease, stage 4 (severe); M97.01XA Periprosthetic fracture around internal prosthetic right hip joint, initial encounter; I25.10 Atherosclerotic heart disease of native coronary artery without angina pectoris; E11.9 Type 2 diabetes mellitus without complications; I12.9 Hypertensive chronic kidney disease with stage 1 through stage 4 chronic kidney disease, or unspecified chronic kidney disease; Y83.1 Surgical operation with implant of artificial internal device as the cause of abnormal reaction of the patient, or of later complication, without mention of misadventure at the time of the procedure; D64.9 Anemia, unspecified; Z79.82 Long term (current) use of aspirin; Z87.891 Personal history of nicotine dependence; Z79.899 Other long term (current) drug therapy; Y92.89 Other specified places as the place of occurrence of the external cause
CPT/HCPCS: 36415; 72170; 80047; 80048; 80053; 82948; 85025; 85651; 86140; 86885; 86900; 86901; 86922; 87070; 87075; 97110; 97116; 97161; A4615; A7000; C1758; C1776; C9399; G0378; J0171; J0690; J0735; J1815; J1885; J2250; J2710; J2795; J3010; J3370; J3490; J7030; J7120; P9016; P9045